=== PATIENT | female | born 1945 | race Caucasian/White ===

== ENCOUNTER 2017-10-13 08:30 | Emergency (ER) | payer OTHER ==
[~2017-10-13] VITALS: Ht 160 cm; Wt 136.1 kg
[~2017-10-13 08:30] MED LIST: ASPI81CH43; DOCU-94; GABA100C; GLY5T; HYDR-1421; LORA-653; OME40GT; PRO10T; SIMV-13; [UNRECOGNIZED DRUG - CODE]; [UNRECOGNIZED DRUG - OTHER]
[2017-10-13 09:37] LABS: Basophils # (auto) 0.1 uL; Basophils % (auto) 0.7 % (0.0-2.0); Eosinophils # (auto) 0.3 uL; Eosinophils % (auto) 2.3 % (0.0-7.0); Hematocrit 35.9 % (36.0-46.0); Hemoglobin 11.5 g/dL (12.2-16.2); Lymphocytes # (auto) 1.3 uL; Lymphocytes % (auto) 11.3 % (10.0-50.0); Mean Corpuscular Hgb Conc. 31.9 g/dL (32.0-36.0); Mean Corpuscular Volume 90.8 fL (80.0-100.0); Monocytes # (auto) 0.6 uL; Monocytes % (auto) 4.9 % (0.0-12.0); Neutrophils # (auto) 9.1 uL; Neutrophils % (auto) 80.8 % (37.0-80.0); Platelet Count (auto) 318 10^3/uL (140-450); Red Blood Cells 3.96 10^6/uL (4.0-5.20); Red Cell Distribution Width 14.1 % (11.8-14.3); White Blood Cell 11.3 10^3/uL (4.4-10.8)
[2017-10-13 09:54] LABS: Albumin 3.1 g/dL (3.4-5.0); BUN/Creatinine Ratio 27.6; Calcium 9.8 mg/dL (8.5-10.1); Potassium 4.9 mmol/L (3.5-5.1)
[2017-10-13 10:09] LABS: Bilirubin, Total 0.1 mg/dL (0.2-1.0); Total Protein 6.7 g/dL (6.4-8.2)
[2017-10-13 10:22] LABS: INR 0.92 (0.9-1.15)
[2017-10-13 11:01] LABS: Urine Bacteria MOD /hpf (None Seen); Urine Blood 1+ /uL (Negative); Urine Specific Gravity 1.018 (1.001-1.035); Urine WBC 167 /hpf (0 - 5); Urine WBC Clumps PRESENT /hpf (None Seen)
[2017-10-13] MEDS ORDERED: LEVOFLOXACIN 500MG 100 ML IV ONE (11:45)
[2017-10-13] MEDS ORDERED: HYDROcodone-ACET 5/325MG TAB PO ONE (12:30)
[2017-10-13 13:34] VITALS: BP 144/58
== END 2017-10-13 12:51 | disposition home or self-care (01) ==
LOC: EDBD 08:30 → ER 08:30
DX: N39.0 Urinary tract infection, site not specified (principal); I10 Essential (primary) hypertension; E11.9 Type 2 diabetes mellitus without complications; E78.5 Hyperlipidemia, unspecified; J45.909 Unspecified asthma, uncomplicated; Z90.49 Acquired absence of other specified parts of digestive tract; Z90.89 Acquired absence of other organs; Z79.899 Other long term (current) drug therapy; Z88.0 Allergy status to penicillin
CPT/HCPCS: 36415; 51702; 71045; 73562; 74176; 80053; 81001; 83880; 84484; 85025; 85610; 85730; 96365; 99285; J1956

== ENCOUNTER 2017-10-21 16:34 | Observation (INO) | payer OTHER ==
[~2017-10-21] VITALS: Ht 165.1 cm; Wt 90.7 kg
[2017-10-21 18:00] LABS: Basophils # (auto) 0.1 uL; Basophils % (auto) 0.7 % (0.0-2.0); Eosinophils # (auto) 0.3 uL; Eosinophils % (auto) 2.3 % (0.0-7.0); Hematocrit 34.4 % (36.0-46.0); Lymphocytes # (auto) 0.5 uL; Mean Corpuscular Hgb Conc. 31.9 g/dL (32.0-36.0); Mean Corpuscular Volume 90.9 fL (80.0-100.0); Monocytes # (auto) 0.6 uL; Monocytes % (auto) 4.7 % (0.0-12.0); Neutrophils # (auto) 11.2 uL; Neutrophils % (auto) 88.3 % (37.0-80.0); Platelet Count (auto) 263 10^3/uL (140-450); Red Blood Cells 3.78 10^6/uL (4.0-5.20); Red Cell Distribution Width 14.2 % (11.8-14.3); White Blood Cell 12.6 10^3/uL (4.4-10.8)
[2017-10-21 18:22] LABS: Alanine Aminotransferase < 6 U/L (13-56); Alkaline Phosphatase 86 U/L (45-117); Anion Gap 8 (5-15); Aspartate Aminotransferase 13 U/L (15-37); BUN/Creatinine Ratio 22.9; Bilirubin, Total 0.3 mg/dL (0.2-1.0); Blood Urea Nitrogen 22 mg/dL (7-18); Calcium 9.4 mg/dL (8.5-10.1); Carbon Dioxide 27 mmol/L (21-32); Chloride 103 mmol/L (98-107); GFR African American 73 mL/min; GFR Non-African American 60 mL/min; Glucose 234 mg/dL (74-106); Magnesium 1.5 mg/dL (1.6-2.6); Potassium 4.7 mmol/L (3.5-5.1); Sodium 138 mmol/L (136-145); Total Protein 6.7 g/dL (6.4-8.2)
[2017-10-21] MEDS ORDERED: cefTRIAXone 1GM/10ml IVPUSH 10 ML IV ONE (19:15)
[2017-10-21] MEDS: MAGNESIUM SULFATE 1GM/100ML 100 ML IV SCH (22:00)
[2017-10-21] MEDS ORDERED: HYDROcodone-ACET 10/325MG TAB PO ONE (22:00)
[2017-10-22] MEDS: MAGNESIUM SULFATE 1GM/100ML 100 ML IV SCH (00:20)
[2017-10-22] MEDS ORDERED: ONDANSETRON HCL 4 MG/2 ML VIAL IV ONE (00:30)
[2017-10-22] MEDS ORDERED: MORPHINE SULFATE 4 MG/ML SYR/VIAL IV ONE (00:30)
[2017-10-22 01:24] VITALS: BP 114/44
== END 2017-10-22 01:53 | disposition short-term general hospital (02) | DRG 194 ==
LOC: ER 16:34 → EDBD 16:34 → OVERFLOW 19:04 → ER 10-22 01:53
PROVIDERS: ADMIT Family Medicine; ATTEND Family Medicine
DX: J18.1 Lobar pneumonia, unspecified organism (principal); J44.0 Chronic obstructive pulmonary disease with (acute) lower respiratory infection; G20 Parkinson's disease; E83.42 Hypomagnesemia; Z99.81 Dependence on supplemental oxygen; E11.9 Type 2 diabetes mellitus without complications; I10 Essential (primary) hypertension; F41.9 Anxiety disorder, unspecified; F32.9 Major depressive disorder, single episode, unspecified; Z87.440 Personal history of urinary (tract) infections; Z90.49 Acquired absence of other specified parts of digestive tract; Z83.3 Family history of diabetes mellitus
CPT/HCPCS: 36415; 71045; 80053; 83605; 83735; 84484; 85025; 87040; 96365; 96366; 96375; 99285; G0378; J2270; J2405; J3475; 93005

== ENCOUNTER 2017-12-12 20:36 | Inpatient (IN) | payer OTHER ==
[~2017-12-12] VITALS: Ht 154.9 cm; Wt 156.5 kg
[2017-12-12] MEDS ORDERED: SODIUM CHLORIDE 0.9% 1,000 ML IV ONE (22:03)
[2017-12-12 22:49] LABS: Urine Bacteria NONE SEEN /hpf (None Seen); Urine Blood 2+ /uL (Negative); Urine WBC 3917 /hpf (0 - 5); Urine WBC Clumps PRESENT /hpf (None Seen)
[2017-12-12 22:49] LABS: Hematocrit 27.3 % (36.0-46.0); Hemoglobin 8.8 g/dL (12.2-16.2); Mean Corpuscular Hemoglobin 29.6 pg (28.0-32.0); Mean Corpuscular Hgb Conc. 32.4 g/dL (32.0-36.0); Mean Corpuscular Volume 91.5 fL (80.0-100.0); Platelet Count (auto) 200 10^3/uL (140-450); Red Blood Cells 2.98 10^6/uL (4.0-5.20); Red Cell Distribution Width 14.6 % (11.8-14.3); White Blood Cell 21.8 10^3/uL (4.4-10.8)
[2017-12-12 22:53] LABS: Basophils % (manual) 0 (0.0-2.0); Blast Cells 0; Eosinophils % (manual) 0 (0-7); Metamyelocytes % 0; Myelocytes % 0; Promyelocytes % 0; Reactive Lymphocytes 0
[2017-12-12 23:06] LABS: Alanine Aminotransferase < 6 U/L (13-56); Albumin 2.2 g/dL (3.4-5.0); Alkaline Phosphatase 72 U/L (45-117); Anion Gap 7 (5-15); Aspartate Aminotransferase 10 U/L (15-37); BUN/Creatinine Ratio 18.6; Bilirubin, Total 0.6 mg/dL (0.2-1.0); Blood Urea Nitrogen 22 mg/dL (7-18); Calcium 8.5 mg/dL (8.5-10.1); Carbon Dioxide 27 mmol/L (21-32); Chloride 103 mmol/L (98-107); GFR African American 58 mL/min; GFR Non-African American 48 mL/min; Glucose 216 mg/dL (74-106); Magnesium 1.1 mg/dL (1.6-2.6); Potassium 4.2 mmol/L (3.5-5.1); Sodium 137 mmol/L (136-145); Total Protein 5.6 g/dL (6.4-8.2)
[2017-12-12 23:10] LABS: INR 1.11 (0.9-1.15); Partial Thromboplastin Time 31.1 sec (22.64-33.71); Prothrombin Time 12.1 sec (9.37-12.3)
[2017-12-12 23:27] LABS: Band Neutrophils % (manual) 2; Lymphocytes % (manual) 2 (10.0-50.0); Monocytes % (manual) 3 (0-12)
[2017-12-12] MEDS ORDERED: SODIUM CHLORIDE 0.9% 3,950 ML IV ONE (23:30)
[2017-12-12] MEDS ORDERED: LEVOFLOXACIN 750MG 150 ML IV ONE (23:30)
[2017-12-13] MEDS ORDERED: PROMETHAZINE HCL 25 MG/ML 1ML IV ONE (03:45)
[2017-12-13] MEDS ORDERED: MORPHINE SULFATE 4 MG/ML SYR/VIAL IV PRN (05:00)
[2017-12-13] MEDS ORDERED: LORazepam 0.5 MG TAB PO PRN (05:00)
[2017-12-13] MEDS ORDERED: NITROGLYCERIN 0.4 MG SL TAB SL PRN (05:00)
[2017-12-13] MEDS ORDERED: ACETAMINOPHEN 500 MG TAB PO PRN (05:00)
[2017-12-13] MEDS ORDERED: ONDANSETRON HCL 4 MG/2 ML VIAL IV PRN (05:00)
[2017-12-13] MEDS ORDERED: DEXTROSE (50%) 50ML SYRG IV PRN (07:30)
[2017-12-13] MEDS: LEVOFLOXACIN 500MG 100 ML IV SCH (09:57)
[2017-12-13] MEDS: GABAPENTIN 100 MG CAP PO SCH (09:57)
[2017-12-13] MEDS: ACCU-CHEK COMFORT CURVE STRIP VI SCH ×3 (11:14→21:36)
[2017-12-13] MEDS: InsuLIN REG 1unit/0.01ml Soln (100units/ml) SC SCH ×2 (11:14→17:00)
[2017-12-13] MEDS ORDERED: LORA-654 PO (12:50)
[2017-12-13] MEDS ORDERED: ERGO1CAP23 PO (13:01)
[2017-12-13] MEDS ORDERED: ATOR40TA52 PO (13:01)
[2017-12-13] MEDS ORDERED: CITA10TA59 PO (13:01)
[2017-12-13] MEDS ORDERED: HYDR-4683 PO (13:01)
[2017-12-13] MEDS ORDERED: OMEP20TA PO (13:01)
[2017-12-13] MEDS ORDERED: GLIP-116 PO (13:01)
[2017-12-13] MEDS ORDERED: NITR-48 PO (13:01)
[2017-12-13] MEDS ORDERED: LISI2.5T47 PO (13:01)
[2017-12-13] MEDS ORDERED: CARB25TA3 PO (13:01)
[2017-12-13] MEDS ORDERED: ONDA8TAB6 PO (13:01)
[2017-12-13] MEDS ORDERED: GABA100C9 PO (13:01)
[2017-12-13] MEDS ORDERED: METF-370 PO (13:01)
[2017-12-13] MEDS ORDERED: CARB1TAB44 PO (13:01)
[2017-12-13] MEDS: SODIUM CHLORIDE 0.9% 1,000 ML IV SCH ×2 (14:47→22:42)
[2017-12-13 14:53] LABS: Basophils # (auto) 0.1 uL; Basophils % (auto) 0.3 % (0.0-2.0); Eosinophils # (auto) 0.3 uL; Eosinophils % (auto) 1.9 % (0.0-7.0); Hematocrit 26.6 % (36.0-46.0); Hemoglobin 8.7 g/dL (12.2-16.2); Lymphocytes # (auto) 0.5 uL; Lymphocytes % (auto) 2.7 % (10.0-50.0); Mean Corpuscular Hemoglobin 29.6 pg (28.0-32.0); Mean Corpuscular Hgb Conc. 32.6 g/dL (32.0-36.0); Mean Corpuscular Volume 90.9 fL (80.0-100.0); Monocytes # (auto) 0.8 uL; Monocytes % (auto) 4.2 % (0.0-12.0); Neutrophils # (auto) 16.3 uL; Neutrophils % (auto) 90.9 % (37.0-80.0); Platelet Count (auto) 208 10^3/uL (140-450); Red Blood Cells 2.93 10^6/uL (4.0-5.20); Red Cell Distribution Width 14.6 % (11.8-14.3); White Blood Cell 17.9 10^3/uL (4.4-10.8)
[2017-12-13 15:11] LABS: BUN/Creatinine Ratio 20.7; Potassium 4.8 mmol/L (3.5-5.1)
[2017-12-13 15:17] VITALS: BP 116/51
[2017-12-13] MEDS: HYDROcodone-ACET 5/325MG TAB PO PRN ×2 (16:03→21:24)
[2017-12-13] MEDS: MEROPENEM 1gm/20ml IVPUSH 20 ML IV SCH ×2 (16:40→21:26)
[2017-12-13 17:00] VITALS: BP 116/51
[2017-12-13] MEDS: CARBIDOPA W LEVODOPA 25/100mg TABLET PO SCH (21:23)
[2017-12-13] MEDS: ALBUTEROL SULF 2.5 MG/0.5ML(0.5%) NEB SOLN NEB PRN (21:28)
[2017-12-13 22:00] VITALS: BP 130/67
[2017-12-13] MEDS ORDERED: InsuLIN REG 1unit/0.01ml Soln (100units/ml) SC SCH (22:00)
[2017-12-13] MEDS: LORazepam 0.5 MG TAB PO PRN (22:53)
[2017-12-14 00:32] VITALS: BP 130/67
[2017-12-14] MEDS: HYDROcodone-ACET 5/325MG TAB PO PRN ×2 (03:45→18:49)
[2017-12-14] MEDS: ALBUTEROL SULF 2.5 MG/0.5ML(0.5%) NEB SOLN NEB PRN ×2 (04:20→06:47)
[2017-12-14 05:00] VITALS: BP 96/79
[2017-12-14] MEDS: CARBIDOPA W LEVODOPA 25/100mg TABLET PO SCH ×2 (06:05→14:38)
[2017-12-14] MEDS: MEROPENEM 1gm/20ml IVPUSH 20 ML IV SCH ×2 (06:05→14:38)
[2017-12-14] MEDS: SODIUM CHLORIDE 0.9% 1,000 ML IV SCH ×2 (06:12→15:00)
[2017-12-14] MEDS: InsuLIN REG 1unit/0.01ml Soln (100units/ml) SC SCH ×3 (06:12→17:35)
[2017-12-14] MEDS: ACCU-CHEK COMFORT CURVE STRIP VI SCH ×3 (06:13→17:24)
[2017-12-14 06:54] LABS: Basophils # (auto) 0.1 uL; Basophils % (auto) 0.7 % (0.0-2.0); Eosinophils # (auto) 0.4 uL; Eosinophils % (auto) 3.1 % (0.0-7.0); Hematocrit 26.3 % (36.0-46.0); Hemoglobin 8.6 g/dL (12.2-16.2); Lymphocytes # (auto) 0.7 uL; Lymphocytes % (auto) 5.4 % (10.0-50.0); Mean Corpuscular Hemoglobin 29.7 pg (28.0-32.0); Mean Corpuscular Hgb Conc. 32.6 g/dL (32.0-36.0); Monocytes # (auto) 0.7 uL; Neutrophils # (auto) 10.3 uL; Neutrophils % (auto) 84.8 % (37.0-80.0); Platelet Count (auto) 206 10^3/uL (140-450); Red Blood Cells 2.89 10^6/uL (4.0-5.20); Red Cell Distribution Width 14.7 % (11.8-14.3); White Blood Cell 12.2 10^3/uL (4.4-10.8)
[2017-12-14 07:02] LABS: BUN/Creatinine Ratio 26.8; Calcium 8.1 mg/dL (8.5-10.1); Potassium 4.4 mmol/L (3.5-5.1)
[2017-12-14 07:05] LABS: Bilirubin, Total 0.3 mg/dL (0.2-1.0); Total Protein 5.8 g/dL (6.4-8.2)
[2017-12-14] MEDS: LORazepam 0.5 MG TAB PO PRN ×2 (07:53→16:56)
[2017-12-14 08:56] VITALS: BP 114/41
[2017-12-14] MEDS ORDERED: ASPirin 81 mg TAB PO SCH (10:00)
[2017-12-14] MEDS ORDERED: CITALOPRAM HYDROBR 20 MG TAB PO SCH (10:00)
[2017-12-14] MEDS: GABAPENTIN 100 MG CAP PO SCH (10:24)
[2017-12-14] MEDS: LEVOFLOXACIN 500MG 100 ML IV SCH (10:25)
[2017-12-14] MEDS ORDERED: ENOXAPARIN SOD 40 MG/0.4 ML SYRINGE SC ONE (11:00)
[2017-12-14 12:26] VITALS: BP 147/64
[2017-12-14] MEDS: ALBUTEROL SULF 2.5 MG/0.5ML(0.5%) NEB SOLN NEB SCH ×2 (12:29→15:27)
[2017-12-14] MEDS ORDERED: IOHEXOL 350 MG/ML 100ML IJ ONE (13:05)
[2017-12-14 17:05] VITALS: BP 135/86
[2017-12-14 18:06] VITALS: BP 135/86
[2017-12-15] MEDS ORDERED: ENOXAPARIN SOD 40 MG/0.4 ML SYRINGE SC SCH (10:00)
== END 2017-12-14 19:07 | disposition short-term general hospital (02) | DRG 871 ==
LOC: EDBD 20:36 → ER 20:49 → TELE 20:50 → TELE-EAST 12-13 15:28
PROVIDERS: ADMIT Nurse Practitioner Family; ATTEND Family Medicine
DX: A41.9 Sepsis, unspecified organism (principal); E43 Unspecified severe protein-calorie malnutrition; E11.21 Type 2 diabetes mellitus with diabetic nephropathy; E11.40 Type 2 diabetes mellitus with diabetic neuropathy, unspecified; E11.65 Type 2 diabetes mellitus with hyperglycemia; G20 Parkinson's disease; N30.00 Acute cystitis without hematuria; Z68.44 Body mass index [BMI] 60.0-69.9, adult; J44.9 Chronic obstructive pulmonary disease, unspecified; E66.01 Morbid (severe) obesity due to excess calories; M19.90 Unspecified osteoarthritis, unspecified site; I70.0 Atherosclerosis of aorta; I10 Essential (primary) hypertension; F32.9 Major depressive disorder, single episode, unspecified; F41.9 Anxiety disorder, unspecified; Z79.82 Long term (current) use of aspirin; Z79.84 Long term (current) use of oral hypoglycemic drugs; Z79.899 Other long term (current) drug therapy; Z83.3 Family history of diabetes mellitus; Z87.01 Personal history of pneumonia (recurrent); Z87.440 Personal history of urinary (tract) infections; Z88.0 Allergy status to penicillin; Z90.49 Acquired absence of other specified parts of digestive tract; Z90.89 Acquired absence of other organs
CPT/HCPCS: 36415; 71045; 71275; 80048; 80053; 81001; 82962; 83036; 83605; 83735; 83880; 84484; 85007; 85025; 85027; 85379; 85610; 85730; 87040; 87081; 87086; 87804; 94640; 94761; 96361; 96365; 96375; 96379; J1815; J1956